=== PATIENT | female | born 1970 | race Hispanic/Latino ===

== ENCOUNTER 2021-03-01 22:52 | Emergency (ER) | payer OTHER ==
[2021-03-01] MEDS ORDERED: OCTYL 2-CYANOACRYLATE 1 EACH TP ONE ×2 (23:45→23:48)
[2021-03-02] MEDS ORDERED: ACETAMINOPHEN EXTRA STRENGTH 500 MG TABLET ONE (00:16)
[2021-03-02] MEDS ORDERED: IBUPROFEN 600 MG TABLET ONE (00:16)
[2021-03-02] MEDS ORDERED: CEPHALEXIN 500 MG CAPSULE ONE (00:16)
[2021-03-02] MEDS ORDERED: TETANUS/DIPHTHERIA TOXOID [ADULT] 0.5 ML VIAL IM ONE (00:17)
== END 2021-03-02 00:34 | disposition home or self-care (01) ==
LOC: EDH 22:52
DX: S91.312A Laceration without foreign body, left foot, initial encounter (principal); E11.9 Type 2 diabetes mellitus without complications; I10 Essential (primary) hypertension; W26.0XXA Contact with knife, initial encounter; Y93.89 Activity, other specified; Y92.098 Other place in other non-institutional residence as the place of occurrence of the external cause; Y99.8 Other external cause status
CPT/HCPCS: 12001; 90471; 90714